=== PATIENT | male | born 1955 | race Caucasian/White ===

== ENCOUNTER 2020-01-06 00:49 | Outpatient (CLI) | payer MEDICARE, SELFPAY ==
[2020-01-06 18:37] LABS: SARS-CoV-2 RNA PCR Negative
== END 2020-01-06 00:50 | disposition home or self-care (01) ==
LOC: ANHCOVIDDT 00:50
PROVIDERS: PCP Nurse Practitioner; Visit Provider Internal Medicine Gastroenterology
DX: Z01.818 Encounter for other preprocedural examination (principal); Z20.828 Contact with and (suspected) exposure to other viral communicable diseases
CPT/HCPCS: 87635; C9803; U0003

== ENCOUNTER 2020-01-09 01:12 | Day surgery (SDC) | payer MEDICARE, SELFPAY ==
[2020-01-01 11:00] VITALS: BMI 27.8
[2020-01-09 10:21] VITALS: BP 142/104; PULSE 108; RESP 18; TEMP 36.9; O2SAT 99; BMI 27.1
--- NOTE | 2020-01-09 10:21 | WPDANESEPPF ---
Anes - Initial Pre Proc Eval Procedure: Operation Date: 01/09/20 11:30 Proposed Procedures p Screening Colonoscopy - Walter Godoy MD Date/Time: 01/09/20 10:21 Surgeon: Walter Godoy MD Pre Op Diagnosis: Neoplasm Screening Patient Data Age: 64 Gender: M Height: 6 ft Weight: 93.18 kg Allergies Allergy/AdvReac Type Severity Reaction Status Date / Time No Known Allergies Allergy Verified 01/09/20 10:18 Home Medications Medication Instructions Recorded Confirmed Type atorvastatin 10 mg tablet 10 mg PO DAILY #90 tablet 10/24/19 01/09/20 Rx coenzyme Q10 200 mg capsule 200 mg PO DAILY 10/24/19 01/09/20 History lisinopril 5 mg tablet 5 mg PO DAILY #90 tablet 10/24/19 01/09/20 Rx peg 3350-electrolytes 236 240 ml PO Q10M #4000 ml 12/18/19 01/09/20 Rx gram-22.74 gram-6.74 gram-5.86 gram solution albuterol sulfate 2 puff INHALATION QID PRN 01/01/20 01/09/20 History hxyqpvzt-lbz-FM-lycopen-lutein 1 tablet PO DAILY 01/01/20 01/09/20 History [Centrum Silver Men] Patient hx anesthesia problems: none Family hx anesthesia problems: none PMFSH Past Medical History Medical History (Updated 01/09/20 @ 10:21 by Andrae Lu MD) Asthma Depression Hernia Hyperlipemia Hypertension Squamous cell carcinoma Surgical History Surgical History H/O vasectomy History of carpal tunnel release Social History Social History Social History: Coffee and Soda 3 cups per day Smoking status: Never smoker Alcohol intake: current Drinks per week: 4 Alcohol use details: DRINKS BEER Substance use: never Substance use type: does not use Living arrangements: with family Spiritual care concerns: No Anes - Eval Final PreProcedure Day of Procedure 01/09/20 10:21 Patient weight: normal Heart: regular rate and rhythm Lungs: clear to auscultation Airway: Mallampati scale class II Neurological: alert and oriented Last oral intake: >/= 8 hours ASA classification: III Emergent: no Anesthetic plan: proceed Anesthesia type and monitoring: general GIVS and standard monitoring Informed Consent: The patient's anesthetic plan and its attendant risks and benefits were discussed with the patient/family/POA. Questions were solicited and answers provided to the satisfaction of the patient/family/POA.
[2020-01-09] MEDS: LACTATED RINGERS 1,000 ML 150 ML IV CONT (10:33)
[2020-01-09 10:36] VITALS: BP 165/95
--- NOTE | 2020-01-09 10:37 | PM.HPGS ---
History of Present Illness History of Present Illness Consent: Risks, benefits, and alternatives have been discussed and questions answered. Patient agrees to proceed with procedure. Chief complaint: Neoplasm Screening Narrative: Mulugeta Esparzaer is a 64 year old male here for history of colon polyps 7 years ago Review of Systems Constitutional: Constitutional: Denies headache(s) and Denies weakness Eyes: Eyes: Denies blurry vision ENT: Reports Normal hearing present, Denies headache(s) and Denies neck pain Cardiovascular: Cardiovascular: Denies chest pain and Denies dyspnea Respiratory: Respiratory: Denies dyspnea Gastrointestinal: Gastrointestinal: Reports no additional gastrointestinal complaints Genitourinary: Genitourinary: Denies dysuria Musculoskeletal: Musculoskeletal: Denies neck pain Integumentary/Breasts: Skin/Breast: Denies dry skin Neurologic: Reports Normal hearing present, Denies headache(s) and Denies weakness Psychiatric: Psychiatric: Denies anxiety Endocrine: Endocrine: Denies change in body appearance Hematologic/Lymphatic: Hematologic/Lymphatic: Denies easy bleeding Allergic/Immunologic: Allergic/Immunologic: Denies urticaria PMFSH Past Medical History Medical History (Updated 01/09/20 @ 10:38 by Walter Godoy MD) Adenomatous colon polyp Asthma Depression Hernia Hyperlipemia Hypertension Squamous cell carcinoma Surgical History Surgical History H/O vasectomy History of carpal tunnel release Social History Social History Social History: Coffee and Soda 3 cups per day Smoking status: Never smoker Alcohol intake: current Drinks per week: 4 Alcohol use details: DRINKS BEER Substance use: never Substance use type: does not use Living arrangements: with family Spiritual care concerns: No Meds Home Medications and Allergies Home Medications Medication Instructions Recorded Confirmed Type atorvastatin 10 mg tablet 10 mg PO DAILY #90 tablet 10/24/19 01/09/20 Rx coenzyme Q10 200 mg capsule 200 mg PO DAILY 10/24/19 01/09/20 History lisinopril 5 mg tablet 5 mg PO DAILY #90 tablet 10/24/19 01/09/20 Rx peg 3350-electrolytes 236 240 ml PO Q10M #4000 ml 12/18/19 01/09/20 Rx gram-22.74 gram-6.74 gram-5.86 gram solution albuterol sulfate 2 puff INHALATION QID PRN 01/01/20 01/09/20 History tdtbgcrg-pdb-BM-lycopen-lutein 1 tablet PO DAILY 01/01/20 01/09/20 History [Centrum Silver Men] Allergies Allergy/AdvReac Type Severity Reaction Status Date / Time No Known Allergies Allergy Verified 01/09/20 10:18 Vital Signs Vital Signs - 24 hr 01/09/20 10:21 01/09/20 10:36 Temperature 98.5 F Pulse Rate 108 H Respiratory Rate 18 Blood Pressure 142/104 H 165/95 H Pulse Oximetry 99 Exam Const: General: comfortable and no acute distress HENMT: General nose exam: Normal nares present Eyes: General: appearance normal, both eyes and all related structures Neck: Neck: no JVD Resp: Auscultation: clear to auscultation bilaterally Cardio: Rate: regular rate Rhythm: regular rhythm GI: Inspection: non-distended GI Palp: Yes Soft to palpation Skin: General skin exam: normal color Neuro: General: gait normal Speech: normal speech Extrem: General: normal to inspection Psych: Mental Status: mental status grossly normal Assessment and Plan Assessment and plan (1) Adenomatous colon polyp: Code(s): D12.6 - Benign neoplasm of colon, unspecified Status: Acute Assessment and Plan: will proceed with colonoscopy (2) Colon cancer screening: Code(s): Z12.11 - Encounter for screening for malignant neoplasm of colon Status: Acute
[2020-01-09 11:03] VITALS: BP 91/62; PULSE 78; RESP 20; O2SAT 96
[2020-01-09 11:13] VITALS: BP 99/68; PULSE 73; RESP 17; O2SAT 97
[2020-01-09 11:23] VITALS: BP 103/69; PULSE 73; RESP 15; O2SAT 96
== END 2020-01-09 11:34 | disposition home or self-care (01) ==
PROVIDERS: PCP Nurse Practitioner; Visit Provider Internal Medicine Gastroenterology
PROC: 0DJD8ZZ Inspection of Lower Intestinal Tract, Via Natural or Artificial Opening Endoscopic (ICD-10-PCS; CPT 45378; principal; 2020-01-09 11:30)
DX: Z12.11 Encounter for screening for malignant neoplasm of colon (principal); K57.30 Diverticulosis of large intestine without perforation or abscess without bleeding; Z86.010 Personal history of colon polyps; E78.5 Hyperlipidemia, unspecified; I10 Essential (primary) hypertension; J45.909 Unspecified asthma, uncomplicated; F32.9 Major depressive disorder, single episode, unspecified; K21.9 Gastro-esophageal reflux disease without esophagitis; Z85.9 Personal history of malignant neoplasm, unspecified
CPT/HCPCS: G0105; 87635; C9803; J2704; J7120; U0003

== ENCOUNTER → 2021-02-26 03:39 | Outpatient (CLI) | payer MEDICARE, SELFPAY ==
[2021-02-26 18:11] LABS: SARS-CoV-2 RNA PCR Negative
== END ==
PROVIDERS: PCP Family Medicine; Visit Provider Nurse Practitioner Family
DX: R68.89 Other general symptoms and signs (principal); Z20.822 Contact with and (suspected) exposure to COVID-19
CPT/HCPCS: C9803; U0003; U0005

== ENCOUNTER 2021-06-03 11:03 | Outpatient (CLI) | payer MEDICARE, SELFPAY ==
--- NOTE | ~2021-06-03 | XR_ITS ---
XR lumbar spine 2-3V DATE: 06/03/2021 11:26 INDICATION: Low back pain, stiffness TECHNIQUE: AP, lateral, coned lateral lumbosacral views COMPARISON: None FINDINGS: There is normal alignment of the lumbar spine. No fracture or bone destruction or spondylol isthesis. The lumbar pedicles are intact. There is mild degenerative disease at L3-4 and L4-5 and severe degenerative disc disease at L5-S1. The sacroiliac joints are intact. IMPRESSION: Degenerative disc disease, most severe at L5-S1 Reviewed, dictated and finalized at location B. OR WRITER
== END 2021-06-03 11:04 | disposition home or self-care (01) ==
PROVIDERS: PCP Family Medicine; Visit Provider Nurse Practitioner Family
DX: M54.50 Low back pain, unspecified (principal); M51.37 Other intervertebral disc degeneration, lumbosacral region
CPT/HCPCS: 72100

== ENCOUNTER 2021-11-19 08:51 | Outpatient (CLI) | payer MEDICARE, SELFPAY ==
[2021-11-19 20:51] LABS: Alanine Aminotransferase 20 U/L (6-50); Alkaline Phosphatase 61 U/L (38-126); Anion Gap 10 mmol/L (8-16); Aspartate Amino Transferase 41 U/L (17-59); Bilirubin,Total 0.7 mg/dL (0.2-1.3); Blood Urea Nitrogen 22 mg/dL (9-20); Calcium 9.1 mg/dL (8.4-10.2); Carbon Dioxide 25 mmol/L (22-30); Chloride 104 mmol/L (98-107); Cholesterol 160 mg/dL (0-200); Estimated Glomerular Filt Rate > 60; Glucose 98 mg/dL (65-110); HDL Direct 61 mg/dL; Potassium 4.3 mmol/L (3.4-5.0); Sodium 139 mmol/L (137-145); Triglycerides 85 mg/dL (<150)
[2021-11-19 21:02] LABS: Basophils Absolute Auto 0.1 K/mm3 (0.0-0.1); Basophils Percent Auto 0.5 % (0.2-1.2); Eosinophils Absolute Auto 0.3 K/mm3 (0-0.3); Hematocrit 49.4 % (42.0-52.0); Immature Granulocyte Absolute 0.04 K/mm3 (0.00-0.031); Immature Granulocyte Percent A 0.4 % (0-0.5); LDL Cholesterol Direct 71 mg/dL; Lymphocytes Percent Auto 21.2 % (18.3-44.2); Mean Corpuscular HGB Conc 32.4 g/dl (32-36); Mean Corpuscular Hemoglobin 31.7 pg (26-34); Mean Corpuscular Volume 97.8 fl (80-100); Mean Platelet Volume 9.9 fl (7.4-10.4); Monocytes Absolute Auto 0.8 K/mm3 (0.1-0.6); Monocytes Percent Auto 7.9 % (2.6-8.5); Neutrophils Absolute Auto 6.3 K/mm3 (1.3-6.7); Platelet Count Result 291 k/mm3 (150-375); Red Blood Count 5.05 M/mm3 (4.6-6.20); Red Cell Distribution Width 13.2 % (11.5-14.5); White Blood Count 9.5 K/mm3 (4.5-10.0)
[2021-11-19 21:22] LABS: Prostate Specific Antigen 3.1 ng/mL (< OR = 4.0)
== END 2021-11-19 08:52 | disposition home or self-care (01) ==
PROVIDERS: PCP Family Medicine; Visit Provider Nurse Practitioner Family
DX: Z12.5 Encounter for screening for malignant neoplasm of prostate (principal); E78.5 Hyperlipidemia, unspecified; I10 Essential (primary) hypertension
CPT/HCPCS: 36415; 80053; 80061; 84153; 84443; 85025; G0103

== ENCOUNTER 2022-05-26 09:37 | Outpatient (CLI) | payer MEDICARE, SELFPAY ==
[2022-05-26 19:02] LABS: Alanine Aminotransferase 25 U/L (6-50); Albumin Level 3.7 g/dL (3.5-5.1); Alkaline Phosphatase 60 U/L (38-126); Anion Gap 3 mmol/L (8-16); Aspartate Amino Transferase 43 U/L (17-59); Bilirubin,Total 0.9 mg/dL (0.2-1.3); Blood Urea Nitrogen 23 mg/dL (9-20); Calcium 8.9 mg/dL (8.4-10.2); Carbon Dioxide 29 mmol/L (22-30); Chloride 107 mmol/L (98-107); Cholesterol 162 mg/dL (0-200); Estimated Glomerular Filt Rate > 60; Glucose 100 mg/dL (65-110); HDL Direct 56 mg/dL; Potassium 4.4 mmol/L (3.4-5.0); Sodium 139 mmol/L (137-145); Triglycerides 89 mg/dL (<150)
[2022-05-26 19:14] LABS: LDL Cholesterol Direct 73 mg/dL
[2022-05-26 20:31] LABS: Basophils Absolute Auto 0.1 K/mm3 (0.0-0.1); Basophils Percent Auto 0.5 % (0.2-1.2); Eosinophils Absolute Auto 0.2 K/mm3 (0-0.3); Eosinophils Percent Auto 2.3 % (0-4.4); Hematocrit 48.2 % (42.0-52.0); Hemoglobin 15.6 g/dL (14.0-18.0); Immature Granulocyte Absolute 0.03 K/mm3 (0.00-0.031); Immature Granulocyte Percent A 0.3 % (0-0.5); Lymphocytes Absolute Auto 1.71 K/mm3 (0.9-3.2); Lymphocytes Percent Auto 18.6 % (18.3-44.2); Mean Corpuscular HGB Conc 32.4 g/dl (32-36); Mean Corpuscular Hemoglobin 31.5 pg (26-34); Mean Corpuscular Volume 97.4 fl (80-100); Mean Platelet Volume 9.8 fl (7.4-10.4); Monocytes Absolute Auto 0.7 K/mm3 (0.1-0.6); Monocytes Percent Auto 7.9 % (2.6-8.5); Neutrophils Absolute Auto 6.5 K/mm3 (1.3-6.7); Neutrophils Percent Auto 70.4 % (45.5-73.1); Platelet Count Result 283 k/mm3 (150-375); Red Blood Count 4.95 M/mm3 (4.6-6.20); Red Cell Distribution Width 13.4 % (11.5-14.5); White Blood Count 9.2 K/mm3 (4.5-10.0)
== END 2022-05-26 09:38 | disposition home or self-care (01) ==
LOC: ANHGOSHLAB 09:39
PROVIDERS: PCP Family Medicine; Visit Provider Nurse Practitioner Family
DX: E78.5 Hyperlipidemia, unspecified (principal); I10 Essential (primary) hypertension
CPT/HCPCS: 36415; 80053; 80061; 85025

== ENCOUNTER 2022-12-01 08:45 | Outpatient (CLI) | payer MEDICARE, SELFPAY ==
[2022-12-01 19:36] LABS: Alanine Aminotransferase 28 U/L (6-50); Alkaline Phosphatase 57 U/L (38-126); Anion Gap 4 mmol/L (8-16); Aspartate Amino Transferase 34 U/L (17-59); Blood Urea Nitrogen 22 mg/dL (9-20); Calcium 9.2 mg/dL (8.4-10.2); Carbon Dioxide 27 mmol/L (22-30); Chloride 105 mmol/L (98-107); Cholesterol 178 mg/dL (0-200); Estimated Glomerular Filt Rate > 60; Glucose 83 mg/dL (65-110); HDL Direct 61 mg/dL; Potassium 4.4 mmol/L (3.4-5.0); Sodium 136 mmol/L (137-145); Triglycerides 134 mg/dL (<150)
[2022-12-01 19:46] LABS: LDL Cholesterol Direct 83 mg/dL
[2022-12-01 20:31] LABS: Basophils Absolute Auto 0.1 K/mm3 (0.0-0.1); Basophils Percent Auto 0.6 % (0.2-1.2); Eosinophils Absolute Auto 0.3 K/mm3 (0-0.3); Eosinophils Percent Auto 2.8 % (0-4.4); Hematocrit 50.5 % (42.0-52.0); Hemoglobin 16.3 g/dL (14.0-18.0); Immature Granulocyte Absolute 0.02 K/mm3 (0.00-0.031); Immature Granulocyte Percent A 0.2 % (0-0.5); Lymphocytes Absolute Auto 1.85 K/mm3 (0.9-3.2); Lymphocytes Percent Auto 19.6 % (18.3-44.2); Mean Corpuscular HGB Conc 32.3 g/dl (32-36); Mean Corpuscular Hemoglobin 31.6 pg (26-34); Mean Corpuscular Volume 97.9 fl (80-100); Mean Platelet Volume 10.1 fl (7.4-10.4); Monocytes Absolute Auto 0.8 K/mm3 (0.1-0.6); Monocytes Percent Auto 8.3 % (2.6-8.5); Neutrophils Absolute Auto 6.5 K/mm3 (1.3-6.7); Neutrophils Percent Auto 68.5 % (45.5-73.1); Platelet Count Result 285 k/mm3 (150-375); Red Blood Count 5.16 M/mm3 (4.6-6.20); Red Cell Distribution Width 13.2 % (11.5-14.5); White Blood Count 9.4 K/mm3 (4.5-10.0)
[2022-12-03 18:48] LABS: PSA, Free 0.77 ng/mL; Percent Free Prostate Spec Ag 26 % (>25)
[2022-12-04 23:29] LABS: Vitamin D 1,25 (OH)2 Total 27 pg/mL (18-72); Vitamin D2 1,25 (OH)2 <8 pg/mL; Vitamin D3 1,25 (OH)2 27 pg/mL
== END 2022-12-01 08:46 | disposition home or self-care (01) ==
PROVIDERS: PCP Family Medicine; Visit Provider Nurse Practitioner Family
DX: E78.5 Hyperlipidemia, unspecified (principal); N40.0 Benign prostatic hyperplasia without lower urinary tract symptoms; I10 Essential (primary) hypertension; E55.9 Vitamin D deficiency, unspecified; Z12.5 Encounter for screening for malignant neoplasm of prostate
CPT/HCPCS: 36415; 80053; 80061; 82652; 84153; 84154; 85025

== ENCOUNTER → 2023-02-09 14:26 | Outpatient (CLI) | payer MEDICARE, SELFPAY ==
--- NOTE | ~2023-02-09 | XR_ITS ---
EXAMINATION: XR thoracic spine 3V DATE: 02/09/2023 14:40 INDICATION: Left upper back pain. TECHNIQUE: 3 views of thoracic spine were obtained. COMPARISON: None. FINDINGS: There is 8 degrees levocurvature of thoracic spine. There is mild chronic anterior wedging of T11 vertebral body. There is mildly decreased disc height at multiple levels in mid and lower thor acic spine. There is severely decreased disc height at T11-T12. IMPRESSION: 1. Severe lower thoracic spondylosis. Reviewed, dictated and finalized at location E.
== END ==
PROVIDERS: PCP Family Medicine; Visit Provider Family Medicine
DX: M47.894 Other spondylosis, thoracic region (principal)
CPT/HCPCS: 72072

== ENCOUNTER 2023-12-09 09:26 | Outpatient (CLI) | payer MEDICARE, SELFPAY ==
[2023-12-09 13:30] LABS: Basophils Absolute Auto 0.1 K/mm3 (0.0-0.1); Basophils Percent Auto 0.6 % (0.2-1.2); Eosinophils Absolute Auto 0.2 K/mm3 (0-0.3); Eosinophils Percent Auto 1.8 % (0-4.4); Hematocrit 52.2 % (42.0-52.0); Hemoglobin 16.9 g/dL (14.0-18.0); Immature Granulocyte Absolute 0.04 K/mm3 (0.00-0.031); Immature Granulocyte Percent A 0.4 % (0-0.5); Lymphocytes Percent Auto 16.6 % (18.3-44.2); Mean Corpuscular HGB Conc 32.4 g/dl (32-36); Mean Corpuscular Hemoglobin 31.6 pg (26-34); Mean Corpuscular Volume 97.6 fl (80-100); Mean Platelet Volume 9.7 fl (7.4-10.4); Monocytes Absolute Auto 0.7 K/mm3 (0.1-0.6); Monocytes Percent Auto 8.2 % (2.6-8.5); Neutrophils Absolute Auto 6.5 K/mm3 (1.3-6.7); Neutrophils Percent Auto 72.4 % (45.5-73.1); Platelet Count Result 303 k/mm3 (150-375); Red Blood Count 5.35 M/mm3 (4.6-6.20)
[2023-12-09 14:39] LABS: Alanine Aminotransferase 20 U/L (6-50); Albumin Level 4.2 g/dL (3.5-5.1); Alkaline Phosphatase 55 U/L (38-126); Anion Gap 5 mmol/L (4-12); Aspartate Amino Transferase 46 U/L (17-59); Bilirubin,Total 0.8 mg/dL (0.2-1.3); Blood Urea Nitrogen 23 mg/dL (9-20); Calcium 9.6 mg/dL (8.4-10.2); Carbon Dioxide 31 mmol/L (22-30); Chloride 104 mmol/L (98-107); Estimated Glomerular Filt Rate > 60; Glucose 107 mg/dL (65-110); Potassium 5.6 mmol/L (3.4-5.0); Sodium 140 mmol/L (137-145)
[2023-12-09 15:25] LABS: Prostate Specific Antigen 4.8 ng/mL (< OR = 4.0)
[2023-12-09 15:41] LABS: Hemoglobin A1C 5.8 % (<5.7)
== END 2023-12-09 09:27 | disposition home or self-care (01) ==
PROVIDERS: PCP Family Medicine; Visit Provider Nurse Practitioner Family
DX: E53.8 Deficiency of other specified B group vitamins (principal); E78.5 Hyperlipidemia, unspecified; F32.9 Major depressive disorder, single episode, unspecified; I10 Essential (primary) hypertension; N40.0 Benign prostatic hyperplasia without lower urinary tract symptoms; Z00.00 Encounter for general adult medical examination without abnormal findings; Z12.5 Encounter for screening for malignant neoplasm of prostate; R73.03 Prediabetes; Z13.29 Encounter for screening for other suspected endocrine disorder
CPT/HCPCS: 36415; 80053; 82607; 83036; 84153; 84443; 85025; G0103

== ENCOUNTER 2023-12-27 08:36 | Outpatient (CLI) | payer MEDICARE, SELFPAY ==
[2023-12-27 15:41] LABS: Anion Gap 8 mmol/L (4-12); Blood Urea Nitrogen 26 mg/dL (9-20); Calcium 9.6 mg/dL (8.4-10.2); Carbon Dioxide 28 mmol/L (22-30); Chloride 103 mmol/L (98-107); Cholesterol 169 mg/dL (0-200); Estimated Glomerular Filt Rate > 60; Glucose 96 mg/dL (65-110); HDL Direct 68 mg/dL; Potassium 5.1 mmol/L (3.4-5.0); Sodium 139 mmol/L (137-145); Triglycerides 86 mg/dL (<150)
[2023-12-27 15:51] LABS: LDL Cholesterol Direct 76 mg/dL
== END 2023-12-27 08:37 | disposition home or self-care (01) ==
LOC: ANHGOSHLAB 08:38
PROVIDERS: Nurse Practitioner Family; PCP Family Medicine; Visit Provider Nurse Practitioner Family
DX: E87.5 Hyperkalemia (principal); E55.9 Vitamin D deficiency, unspecified; E78.5 Hyperlipidemia, unspecified
CPT/HCPCS: 36415; 80048; 80061; 82306

== ENCOUNTER 2024-02-02 12:49 | Outpatient (CLI) | payer MEDICARE, SELFPAY ==
[2024-02-02 17:21] LABS: Prostate Specific Antigen 3.6 ng/mL (< OR = 4.0)
== END 2024-02-02 12:50 | disposition home or self-care (01) ==
LOC: ANHGOSHLAB 12:51
PROVIDERS: PCP Family Medicine; Visit Provider Urology
DX: R97.20 Elevated prostate specific antigen [PSA] (principal)
CPT/HCPCS: 36415; 84153

== ENCOUNTER 2024-07-13 10:00 | Outpatient (CLI) | payer MEDICARE, SELFPAY ==
--- OUTSIDE RECORDS SUMMARY | 2024-07-13 11:03 | XMS_ITS | Clinical Summary ---
Author Organization [facility] Address [address] [place] [address] Care Team Providers Care Soyfreeze Operator Name Role Phone Kaushik Cordero MD Primary Care Provider Allergies No known active allergies Medications atorvastatin (LIPITOR) 10 mg tablet 01/20/2021 Active lisinopriL (PRINIVIL,ZESTRI L) 5 mg tablet 01/20/2021 Acti ve coenzyme Q10 10 mg capsule Take 10 mg by mouth daily Active multivitamin tabletIndication s:Vitamin Deficiency Prevention Take 1 tablet by mouth Active Active Problems No known active problems Surgical History Surgery Date Site/Laterality Comments CARPAL TUNNEL RELEASE 04/19/2012 - 04/18/2013 Right HERNIA REPAIR 04/19/2001 - 04/18/2002 VASECTOMY 04/19/1990 - 04/18/1991 SQUAMOUS CELL CARCINOMA EXCISION 04/19/1997 - 04/18/1998 Social History Tobacco Use Types Packs/Day Years Used Date Smoking Tobacco: Never Personal Safety Answer Date Recorded Getting School Help Needed Not on file 06/19 Sex and Gender Information Value Date Recorded Sex Assigned at Not on file Legal Sex Male 9:13 AM CDT Gender Identity Not on file Sexual Orientation Not on file Obstetrics History Last Filed Vital Signs Vital Sign Reading Time Taken Comments Blood Pressure - - Pulse - - Temperature - - Respiratory Rate - - Oxygen Saturation - - Inhaled Oxygen Concentration - - Weight 90.7 kg (200 lb) 01/28/2021 1:40 PM CDT Height 182.9 cm (6') 01/28/2021 1:40 PM CDT Body Mass Index 27.12 01/28/2021 1:40 PM CDT Plan of Treatment Not on file Insurance [employer] MDCR HMO REF Care Teams Soyfreeze Operator Relationship Specialty Start Date End Date Kaushik Cordero MD PCP - General Family Practice 01/15/21
--- OUTSIDE RECORDS SUMMARY | 2024-07-13 11:03 | XMS_ITS | Referral Summary ---
Author Organization [facility] Address [address] [place] [address] Care Team Providers Care Business Unit Controller Name Role Phone Kaushik Cordero MD Primary Care Provider Allergies No known active allergies Medications atorvastatin (LIPITOR) 10 mg tablet 01/20/2021 Active lisinopriL (PRINIVIL,ZESTRI L) 5 mg tablet 01/20/2021 Acti ve coenzyme Q10 10 mg capsule Take 10 mg by mouth daily Active multivitamin tabletIndication s:Vitamin Deficiency Prevention Take 1 tablet by mouth Active Active Problems No known active problems Social History Tobacco Use Types Packs/Day Years Used Date Smoking Tobacco: Never Personal Safety Answer Date Recorded Getting School Help Needed Not on file 06/19 Sex and Gender Information Value Date Recorded Sex Assigned at Not on file Legal Sex Male 9:13 AM CDT Gender Identity Not on file Sexual Orientation Not on file Last Filed Vital Signs Vital Sign Reading [...] Plan of Treatment Not on file [facility] Care Teams Business Unit Controller Relationship Specialty Start Date End Date Kaushik Cordero MD PCP - General Family Practice 01/15/21
[2024-07-13 20:20] LABS: Prostate Specific Antigen 3.5 ng/mL (< OR = 4.0)
== END 2024-07-13 10:01 | disposition home or self-care (01) ==
LOC: ANHGOSHLAB 10:02
PROVIDERS: PCP Family Medicine; Visit Provider Urology
DX: R97.20 Elevated prostate specific antigen [PSA] (principal)
CPT/HCPCS: 36415; 84153

== ENCOUNTER 2024-12-26 09:06 | Outpatient (CLI) | payer MEDICARE, SELFPAY ==
--- OUTSIDE RECORDS SUMMARY | 2024-12-26 09:51 | XMS_ITS | Clinical Summary ---
Author Organization [facility] Address [address] [place] [address] Care Team Providers Care Personal Fitness Trainer Name Role Phone Kaushik Cordero MD Primary [...] Plan of Treatment Not on file Insurance [facility] MDCR HMO REF Care Teams Personal Fitness Trainer Relationship Specialty Start Date End Date Kaushik Cordero MD PCP - General Family Practice 01/15/21
[2024-12-26 13:11] LABS: Hematocrit 51.0 % (42.0-52.0); Hemoglobin 16.4 g/dL (14.0-18.0); Immature Granulocyte Percent A 0.3 % (0-0.5); Lymphocytes Absolute Auto 1.43 K/mm3 (0.9-3.2); Mean Corpuscular HGB Conc 32.2 g/dl (32-36); Mean Corpuscular Hemoglobin 31.3 pg (26-34); Mean Corpuscular Volume 97.3 fl (80-100); Nucleated Red Blood Cells Absolute Auto 0.000 K/mm3 (0.0-0.012); Nucleated Red Blood Cells Perc 0.0 % (0.0-0.2); Platelet Count Result 282 k/mm3 (150-375); Red Blood Count 5.24 M/mm3 (4.6-6.20); White Blood Count 8.9 K/mm3 (4.5-10.0)
[2024-12-26 13:27] LABS: Alanine Aminotransferase 20 U/L (6-50); Albumin Level 4.5 g/dL (3.5-5.1); Alkaline Phosphatase 63 U/L (38-126); Anion Gap 7 mmol/L (4-12); Aspartate Amino Transferase 54 U/L (17-59); Bilirubin,Total 1.0 mg/dL (0.2-1.3); Blood Urea Nitrogen 21 mg/dL (9-20); Calcium 9.9 mg/dL (8.4-10.2); Carbon Dioxide 28 mmol/L (22-30); Chloride 105 mmol/L (98-107); Cholesterol 182 mg/dL (0-200); Estimated Glomerular Filt Rate 59; Glucose 93 mg/dL (65-110); HDL Direct 62 mg/dL; Potassium 5.5 mmol/L (3.4-5.0); Sodium 140 mmol/L (137-145); Total Protein 7.4 g/dL (6.3-8.2); Triglycerides 95 mg/dL (<150)
[2024-12-26 13:47] LABS: Hemoglobin A1C 5.8 % (<5.7)
[2024-12-26 13:58] LABS: Thyroid Stimulating Hormone Reflex 1.540 uIU/mL (0.465-4.68)
== END 2024-12-26 09:07 | disposition home or self-care (01) ==
PROVIDERS: PCP Nurse Practitioner Family; Visit Provider Nurse Practitioner Family
DX: R73.03 Prediabetes (principal); Z85.89 Personal history of malignant neoplasm of other organs and systems; Z12.83 Encounter for screening for malignant neoplasm of skin; I10 Essential (primary) hypertension; E78.5 Hyperlipidemia, unspecified; E55.9 Vitamin D deficiency, unspecified
CPT/HCPCS: 36415; 80053; 80061; 82306; 83036; 84443; 85025

== ENCOUNTER 2025-01-12 10:09 | Outpatient (CLI) | payer MEDICARE, SELFPAY ==
--- OUTSIDE RECORDS SUMMARY | 2025-01-12 10:13 | XMS_ITS | Clinical Summary ---
Author Organization [facility] Address [address] [place] [address] Care Team Providers Care Silviculturist Name Role Phone Kaushik Cordero MD Primary [...] Plan of Treatment Not on file Insurance [facility] MDCR HMO REF [facility] MEDICARE Address: [address] [address] Care Teams Silviculturist Relationship Specialty Start Date End Date Kaushik Cordero MD PCP - General Family Practice 01/15/21
--- OUTSIDE RECORDS SUMMARY | 2025-01-12 10:14 | XMS_ITS | Patient Health Record ---
Author Organization [facility] As [employer] Address [address] [place] [address] Care Team Providers Care Cost Specialist Name Role Phone Norman Patel Unavailable [phone] Reason For Referral No Information Medications Medication SIG (Take, Route, Frequency, Duration) Notes Start Date End Date Status Atorvastatin Calcium 10 MG Tablet Oral 05/17/2020 Active FLUZONE HIGH-DOSE QUAD 2019-21 (PF) 240 MCG/0.7 ML IM SYRINGE *Reorder from [employer] for eRx and Interaction Alerts* 05/17/2020 Active Lisinopril 5 MG Tablet Oral 05/17/2020 Active Immunizations Vaccine Route Administration Date Status Comme nts Influenza virus vaccine, quadrivalent (IIV4), split virus, 0.25 mL dosage Unknown 02/27/2020 Administered Social History Social History Additional Details Category Social Info Options Details Migrated Social History Migrated Social History Alcohol Intake: Occasional 05/17/2020,Tobacco Years: Never smoker 05/17/2020 Plan Of Treatment No Information Insurance Providers Payer Name Payer Address Payer Phone Subscriber Number Group Number Insured Name Patient Relationship to Insured Coverage Start Date Coverage End Date [facility] Medicare Replacement/ [employer]vant[employer] - [employer] [address] [address] [place] [address] [id number] JENNIFER TERRELL Self - patient is the insured Medical (General) History Surgical History Surgery Date(Month/Year) Carpal tunnel surgery (84398) Hernia repair w/mesh ([id number]) Vasectomy ([id number])
[2025-01-12 18:30] LABS: Anion Gap 6 mmol/L (4-12); Blood Urea Nitrogen 21 mg/dL (9-20); Calcium 9.1 mg/dL (8.4-10.2); Carbon Dioxide 26 mmol/L (22-30); Chloride 104 mmol/L (98-107); Estimated Glomerular Filt Rate > 60; Glucose 87 mg/dL (65-110); Potassium 4.1 mmol/L (3.4-5.0); Sodium 136 mmol/L (137-145)
== END 2025-01-12 10:10 | disposition home or self-care (01) ==
LOC: ANHGOSHLAB 10:10
PROVIDERS: PCP Nurse Practitioner Family; Visit Provider Nurse Practitioner Family
DX: E87.5 Hyperkalemia (principal)
CPT/HCPCS: 36415; 80048

== ENCOUNTER 2025-02-06 14:09 | Outpatient (CLI) | payer MEDICARE, SELFPAY ==
--- OUTSIDE RECORDS SUMMARY | 2025-02-06 17:45 | XMS_ITS | Patient Health Record ---
Author Organization [facility] As [employer] Address [address] [place] [address] Care Team Providers Care Childcare Director Name Role Phone Norman Patel Unavailable [phone] Reason For Referral No Information Medications Medication SIG (Take, Route, Frequency, Duration) Notes Start Date End Date Status Atorvastatin Calcium 10 MG Tablet Oral 05/17/2020 Active FLUZONE HIGH-DOSE QUAD (PF) 240 MCG/0.7 ML IM SYRINGE *Reorder from [employer] for eRx and Interaction Alerts* 05/17/2020 Active [...] Insured Coverage Start Date Coverage End Date [facility] Medicare Replacement/ Advantage - Hmo [address] [address] [place] [address] [id number] JENNIFER TERRELL Self - patient is the insured Medical (General) History Surgical History Surgery Date(Month/Year) Carpal tunnel surgery ([id number]) Hernia repair w/mesh (29306) Vasectomy ([id number])
--- OUTSIDE RECORDS SUMMARY | 2025-02-06 17:45 | XMS_ITS | Clinical Summary ---
Author Organization [facility] Address [address] [place] [address] Care Team Providers Care Executive Vice President And Chief Financial Officer Name Role Phone Kaushik Cordero MD Primary [...] Plan of Treatment Not on file Insurance [facility] MDCR HMO REF [facility] MEDICARE Address: [address] [address] Care Teams Executive Vice President And Chief Financial Officer Relationship Specialty Start Date End Date Kaushik Cordero MD PCP - General Family Practice 01/15/21
[2025-02-06 19:24] LABS: Anion Gap 7 mmol/L (4-12); Blood Urea Nitrogen 29 mg/dL (9-20); Calcium 9.1 mg/dL (8.4-10.2); Carbon Dioxide 26 mmol/L (22-30); Chloride 104 mmol/L (98-107); Estimated Glomerular Filt Rate > 60; Glucose 94 mg/dL (65-110); Potassium 5.0 mmol/L (3.4-5.0); Sodium 137 mmol/L (137-145)
== END 2025-02-06 14:10 | disposition home or self-care (01) ==
LOC: ANHGOSHLAB 14:10
PROVIDERS: PCP Nurse Practitioner Family; Visit Provider Nurse Practitioner Family
DX: E87.5 Hyperkalemia (principal)
CPT/HCPCS: 36415; 80048